=== PATIENT | male | born 1945 | race African-American/Black ===

== ENCOUNTER 2016-09-20 10:45 | Emergency (ER) | payer BC ==
--- NOTE | 2016-09-20 12:06 | UC ---
Head Injury HPI - HPI Summary HPI Summary: The patient comes in today for: 1. "I fell on my way on to a friends house." Onset: 2 hours ago. Palliative/provocative: Nothing makes his symptoms better or worse. Quality: Ache. Region: Right wrist. Severity: 10 though he appears more like 12/10 Time: Constant. Associated symptoms: Event: He states that he does not know why he fell. He state that when he was trying to step on the curb, he fell backwards into the street. He did not hit his head at that time. A lady helped him get up. While standing waiting for the helpful lady to turn her car around and he fell again into the street. He hit the back of his head at that time. He denies any loss of consciousness. He states that he fell on his outstretched right hand. It hurts now. He states that he is dizzy ("off balance"). He has no numbness or weakness. He does not know for sure if he had an asymmetrical smile, but he denies any slurred speech. He denies any LOC. No headache. HE denies any neck pain. Previous disease: He denies any previous neurologic symptoms. Social history:He lives alone in his own apartment. Previous event: Previous fall 2-3 on the ice. However, he states that this was not from any sense of imbalance--just that he slipped on ice. He states that he did not hit his head at that time. He had a "chipped bone" in his left ankle for which he was previously treated. He states that his imbalance which brings him in is a new onset problem. * - History Of Current Complaint Chief Complaint: UCGeneralIllness Stated Complaint: HEAD INJURY Time Seen by Provider: 09/20/16 11:32 Hx Obtained From: Patient - Allergies/Home Medications Allergies/Adverse Reactions: Allergies Allergy/AdvReac Type Severity Reaction Status Date / Time Ibuprofen Allergy Severe Shortness Verified 09/20/16 11:30 of Breath Penicillins [PCN] Allergy Intermediate "almost Verified 09/20/16 11:30 blacked out" PMH/Surg Hx/FS Hx/Imm Hx Previously Healthy: No - He does not know what medications he takes or for what reason for sure. Endocrine History Of: Denies: Diabetes, Thyroid Disease, Hyperthyroidism, Hypothyroidism, Dyslipidemia Cardiovascular History Of: Reports: Hypertension Denies: Cardiac Disorders, Pacemaker/ICD, Myocardial Infarction, Congestive Heart Failure, Atrial Fibrillation, Deep Vein Thrombosis, Bleeding Disorders Respiratory History Of: Denies: COPD, Asthma, Bronchitis, Pneumonia, Pulmonary Embolism GI/ History Of: Reports: Kidney Stones - MANY YEARS AGO, Renal Disease - ACUTE RENAL FAILURE R/T DEHYDRATION 12/31/14 Denies: Gastroesophageal Reflux, Ulcer, Gastrointestinal Bleed, Gall Bladder Disease, Diverticulitis, Urosepsis Neurological History Of: Denies: TIA, CVA, Dementia, Seizures, Migraine Psychological History Of: Denies: Anxiety, Depression, Bipolar Disorder, Schizophrenia, Post Traumatic Stress Disorder Cancer History Of: Denies: Lung Cancer, Colorectal Cancer, Breast Cancer, Prostate Cancer, Cervical Cancer Other History Of: Negative For: HIV, Hepatitis B, Hepatitis C, Anticoagulant Therapy - Surgical History Surgical History: Yes Surgery Procedure, Year, and Place: [facility], NASAL SURGERY, 1980S, right foot surgery - Family History Known Family History: Positive: Cardiac Disease, Diabetes - Social History Occupation: Employed Part-time Alcohol Use: None Alcohol Amount: has not had a drink in past 5-6 weeks Substance Use Type: Marijuana Substance Use Comment - Amount & Last Used: occ. usage Smoking Status (MU): Never Smoked Tobacco - Immunization History Most Recent Influenza Vaccination: NEVER Most Recent Tetanus Shot: UNKNOWN Most Recent Pneumonia Vaccination: NEVER Review of Systems Constitutional: Negative Skin: Negative Eyes: Negative ENT: Negative Respiratory: Negative Cardiovascular: Negative Gastrointestinal: Negative Genitourinary: Negative All Other Systems Reviewed And Are Negative: Yes Physical Exam Triage Information Reviewed: Yes Appearance: Well-Appearing, No Pain Distress, Well-Nourished Vital Signs: Initial Vital Signs Temp 97.7 F 09/20/16 11:22 Pulse 69 09/20/16 11:22 Resp 20 09/20/16 11:22 BP 195/114 09/20/16 11:22 Pulse Ox 100 09/20/16 11:22 Prior to leaving for the hospital the BP was 182/104. Vital Signs Reviewed: Yes Eyes: Positive: Conjunctiva Clear. Negative: Discharge ENT: Positive: Hearing grossly normal - He had hearing aids in both ears.. Negative: Pharyngeal erythema, Nasal congestion, Nasal drainage, Tonsillar swelling, Tonsillar exudate Dental: Positive: Other: - Mucous membranes were pink and moist. Neck: Positive: Supple, Nontender, No Lymphadenopathy. Negative: Nuchal Rigidity Respiratory: Positive: Lungs clear, No respiratory distress, No accessory muscle use. Negative: Crackles, Wheezing Cardiovascular: Positive: RRR, No Murmur Abdomen Description: Positive: Nontender, No Organomegaly, Soft. Negative: Distended, Guarding Musculoskeletal: Positive: Strength Intact, ROM Intact, Edema @ - Bilateral peripheral edema. Neurological: Positive: Alert, Muscle Tone Normal, Other: - Neurologic exam: Inspection: no fasciculations. Cranial nerves (II-XII): intact except for poor hearing in the left ear. Muscular tone: Reflexes: Biceps: 1+/2 x 2 Triceps: 1+/2 x 2 Brachioradialis: 1+/2 x 2 Patellar: 1+/2 x 2 Achilles : 0+/2 x 2 Coordination: Upper extremity: Alternating patting of thighs, alternating fingertips to thumb, index finger tip to nose--all normal. Lower extremity: Heel along wall--normal. Strength: Upper extremity: appropriate for age and symmetrical Lower extremity: appropriate for age and symmetrical Gait: Regular: Normal. Heel to toe: He is not able to complete. Rhomberg: Normal. Sensation: No complaint of numbness. Psychological: Positive: Age Appropriate Behavior, Consolable Skin: Negative: rashes, breakdown Diagnostics - Laboratory Diagnostic Studies Completed/Ordered: Random blood sugar: 87. EKG: Rate: 59. Rhythm: Sinus bradycardia. Ectopy: None. Acute changes: None. - Radiology No standard instances Xray Interpretation: Positive (See Comments) Radiology Interpretation Completed By: Radiologist - IMPRESSION: CT head: 1. NO EVIDENCE FOR ACUTE INTRACRANIAL ABNORMALITY. 2. FINDINGS SUGGESTIVE OF MILD CHRONIC SMALL VESSEL ISCHEMIC CHANGES. Head Injury Course/Dx - Course Course Of Treatment: Patient was told that with the findings of chronic ischemic changes seen on his CT scan and with the new onset of imbalance, he may be having a new small ministroke and for this reason, he may do well to be considered for a more thorough evaluation and possible admission. He agreed to go to the ER. - Differential Dx/Diagnosis Provider Diagnoses: New onset imbalance, with history of chronic ischemic changes seen on CT scan - Physician Notification/Consults Discussed Patient Care With: Dr. Sanderson. Time Discussed With Above Provider: 14:08 Discharge - Discharge Plan Condition: Stable Disposition: AGAINST MEDICAL ADVICE Additional Instructions: Please go directly to the ER (by private car by his request).
--- NOTE | 2016-09-20 12:55 | RAD ---
INDICATION: Head injury, new ambulation deficit. COMPARISON: Comparison is made with a prior CT of the brain from March 11, 2015 and a prior MRI of the brain from April 06, 2015. TECHNIQUE: Contiguous axial sections of the brain were obtained from the skull base to the vertex without contrast. FINDINGS: The ventricles, cisterns and sulci are enlarged consistent with age-related atrophy. There are small areas of decreased density in the subcortical and periventricular white matter suggestive of mild chronic small vessel ischemic changes. No other focal abnormality or mass effect is seen. There is no evidence for hemorrhage. No significant focal osseous abnormality is seen. The visualized portion of the paranasal sinuses and mastoid air cells appear clear. IMPRESSION: 1. NO EVIDENCE FOR ACUTE INTRACRANIAL ABNORMALITY. 2. FINDINGS SUGGESTIVE OF MILD CHRONIC SMALL VESSEL ISCHEMIC CHANGES.
--- NOTE | 2016-09-20 13:07 | RAD ---
INDICATION: Right wrist injury. TECHNIQUE: 4 views of the right wrist were obtained. FINDINGS: The bones are osteopenic and in normal alignment. There is posterior soft tissue swelling. No fracture is seen. There is a small calcification adjacent to the distal scaphoid bone. Joint spaces appear maintained. IMPRESSION: NO EVIDENCE FOR FRACTURE, IF THE PATIENT'S SYMPTOMS PERSIST RECOMMEND FOLLOW-UP IMAGING.
[2016-09-20 14:24] VITALS: BP 210/97
== END 2016-09-20 14:20 | disposition left against medical advice (07) ==
LOC: UCEAST 10:45
DX: R26.89 Other abnormalities of gait and mobility (principal); R42 Dizziness and giddiness; I67.82 Cerebral ischemia; I10 Essential (primary) hypertension; Z88.4 Allergy status to anesthetic agent; Z88.0 Allergy status to penicillin; F12.90 Cannabis use, unspecified, uncomplicated
CPT/HCPCS: 70450; 93005; 99212; G0463

== ENCOUNTER 2016-09-20 14:46 | Observation (INO) | payer BC, MEDICARE ==
[2016-09-20 15:30] LABS: Hematocrit 34 % (42-52); Hemoglobin 10.8 g/dl (14.0-18.0); Mean Corpuscular HGB Conc 32 g/dl (31-36); Mean Corpuscular Hemoglobin 31 pg (27-31); Mean Corpuscular Volume 97 fL (80-94); Mean Platelet Volume 8 um3 (7.4-10.4); Red Blood Count 3.48 10^6/ul (4.0-5.4); Red Cell Distribution Width 16 % (10.5-15); White Blood Count 10.1 10^3/ul (3.5-10.8)
--- NOTE | 2016-09-20 15:41 | RAD ---
Indication: Hypertension. Single frontal view of the chest performed at 1525 hours was reviewed. Comparison is made with previous exam dated December 31, 2014. Cardiomegaly is noted. Tortuous descending aorta is noted. Lungs are clear. IMPRESSION: CARDIOMEGALY WITH TORTUOUS DESCENDING AORTA.
[2016-09-20 15:49] LABS: Albumin 3.7 g/dL (3.2-5.2); Calcium 9.1 mg/dL (8.6-10.3); EGFR African American 71.9 (>60); EGFR Non-African American 55.9 (>60); Globulin 2.7 g/dL (2-4); Potassium 3.8 mmol/L (3.5-5.0); Total Bilirubin 0.9 mg/dL (0.2-1.0); Total Protein 6.4 g/dL (6.4-8.9); Troponin I 0.01 ng/mL (<0.04)
[2016-09-20] MEDS ORDERED: amLODIPine TAB* 5 MG PO ONE (16:10)
[2016-09-20] MEDS ORDERED: hydrALAZINE IV* 20 MG/ML VIAL IV SLOW PU ONE (16:11)
[2016-09-20 16:34] LABS: T4 6.9 g/dL (6.09-12.23)
[2016-09-20 16:35] LABS: TSH (Thyroid Stimulating Horm) 0.91 mcIU/mL (0.34-5.60)
[2016-09-20] MEDS ORDERED: Furosemide IV* 10 MG/ML VIAL (40 MG) IV SLOW PU ONE (17:48)
[2016-09-20] MEDS: hydrALAZINE IV* 20 MG/ML VIAL IV SLOW PU PRN (17:50)
[2016-09-20] MEDS ORDERED: Ondansetron INJ* 2 MG/ML VIAL IV PRN (19:03)
--- NOTE | 2016-09-20 19:06 | PN ---
Hospitalist Progress Note HOSPITALIST ADDENDUM Called by RN because patient arrived to floor c/o severe MANRIQUEZ / and nausea. BP on arrival was 153/89. I called hospitalist certified nurse practitioner (Dr. Calvo) and he kindly agreed to see the patient now.
--- NOTE | 2016-09-20 19:16 | PN ---
Hospitalist Progress Note CTSP for headache/N/V On arrival patient sitting up in bed appears comfortable. Had some nausea and minimal emesis of clear liquid, nausea has since resolved. Denies chest pain or SOB. Reports MANRIQUEZ in the frontal area that has been present since he feel and hit his head. On exam, BPs have lowered after medications, CN II-XII grossly intact, strength 5/5 throughout extremities, sensation symmetric B/L, no deficits noted. Will write patient for analgesic, can give prn zofran for nausea. If MANRIQUEZ persists despite medication or worsens or patient has any other concerning symptoms can consider repeat head CT (had negative CT at noon today) but I think intracranial hemorrhage is unlikely.
[2016-09-20] MEDS: Acetaminophen TAB* 325 MG PO PRN (19:42)
[2016-09-20] MEDS: Carvedilol TAB* 25 MG PO SCH ×2 (19:42→21:43)
[2016-09-20] MEDS: Heparin VIAL(*) 5000 UNITS/ML VIAL (FIVE THOUSAND) SUBCUT SCH (21:44)
--- NOTE | 2016-09-20 22:37 | ED ---
Renan Bonner Adam, scribed for Pierre Sanderson MD on 09/20/16 at 1556 . Adult Trauma - HPI Summary HPI Summary: Fell at 10:30 this morning after feeling dizzy. As he was walking outside he began to feel off-balance and then he fell backwards and struck his head on the curb. He c/o constant MANRIQUEZ since hitting his head. He denies any lightheadedness, spinning, slurred speech, difficulty swallowing, unilateral numbness/weakness/ tingling, or pain between the shoulder blades. He also denies any N/V/D, cough, abdominal pain, or recent PNA. PMHx of HTN but he did not take his BP medicine today. Daily alcohol use, no tobacco use. No FMHx of CVA or cardiac disease. Pt was seen at [facility] after the fall and had CT WNL. He was sent to the ED with HTN. - History of Current Complaint Chief Complaint: EDDizziness Stated Complaint: FALL/HEAD INJURY Time Seen by Provider: 09/20/16 15:12 Hx Obtained From: Patient Mechanism of Injury: Fall Ambulatory at the Scene: Yes Loss of Consciousness: no loss of consciousness Onset/Duration: Started Hours Ago, Traumatic, Still Present Onset of Pain: Immediate Onset Severity: Moderate Current Severity: Moderate Location: Head Aggravating Factor(s): Nothing Alleviating Factor(s): Nothing Associated Signs & Symptoms: Positive: Other: - Dizziness prior to fall - Allergy/Home Medications Allergies/Adverse Reactions: Allergies Allergy/AdvReac Type Severity Reaction Status Date / Time Ibuprofen Allergy Severe Shortness Verified 09/20/16 11:30 of Breath Penicillins [PCN] Allergy Intermediate "almost Verified 09/20/16 11:30 blacked out" Home Medications: Home Medications Multivitamins/Minerals TAB* [Theragran/minerals TAB*] 1 tab PO DAILY 09/20/16 [ History Confirmed 09/20/16] amLODIPine TAB* [Norvasc TAB*] 10 mg PO DAILY 09/20/16 [History Confirmed ] PMH/Surg Hx/FS Hx/Imm Hx Endocrine/Hematology History: Denies: Hx Anticoagulant Therapy, Hx Diabetes, Hx Systemic Lupus Erythematosus, Hx Sickle Cell Disease, Hx Thyroid Disease Cardiovascular History: Reports: Hx Hypercholesterolemia, Hx Hypertension Denies: Hx Congestive Heart Failure, Hx Deep Vein Thrombosis, Hx Myocardial Infarction, Hx Pacemaker/ICD, Other Cardiovascular Problems/Disorders Respiratory History: Denies: Hx Asthma, Hx Chronic Obstructive Pulmonary Disease (COPD), Hx Lung Cancer, Hx Pneumonia, Hx Pulmonary Embolism, Other Respiratory Problems/ Disorders GI History: Denies: Hx Gall Bladder Disease, Hx Gastrointestinal Bleed, Hx Ulcer, Hx Urosepsis, Other GI Disorders History: Reports: Hx Kidney Stones - MANY YEARS AGO, Hx Renal Disease - ACUTE RENAL FAILURE R/T DEHYDRATION 12/31/14, Other Problems/Disorders Denies: Hx Dialysis Musculoskeletal History: Reports: Hx Arthritis Denies: Hx Rheumatoid Arthritis, Other Musculoskeletal History Sensory History: Reports: Hx Contacts or Glasses, Hx Hearing Aid Opthamlomology History: Reports: Hx Contacts or Glasses Neurological History: Reports: Other Neuro Impairments/Disorders - optic nerve atrophy Denies: Hx Dementia, Hx Migraine, Hx Seizures, Hx Transient Ischemic Attacks (TIA) Psychiatric History: Denies: Hx Anxiety, Hx Depression, Hx Panic Disorder, Hx Schizophrenia, Hx Bipolar Disorder - Cancer History Hx Chemotherapy: No - Surgical History Surgery Procedure, Year, and Place: [facility], NASAL SURGERY, 1980S, right foot surgery Hx Anesthesia Reactions: No Infectious Disease History: No Infectious Disease History: 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 usage Hx Tobacco Use: No Smoking Status (MU): Never Smoked Tobacco Review of Systems Positive: Other - HTN Positive: Edema - Bilateral ankles Neurological: Other - Dizziness Positive: Headache All Other Systems Reviewed And Are Negative: Yes Physical Exam - Summary Physical Exam Summary: General: Comfortable, pleasant, alert, no distress. HEENT: Moist mucosa, ETHEL, no nystagmus, EOMI. No hematoma, negative Nava's, negative Raccoon. Neck: Soft, supple, no adenopathy, no edema. C-spine nontender, C-spine full ROM. Heart: No murmurs, rubs, or gallops Lungs: Clear to auscultation. Abdominal: Soft, flat, nontender. Extremities: No pitting edema, no calf tenderness, calves soft. Neuro: Alert and oriented x 3, CN 3-12 intact. Negative pronator drift in all four extremities. Speech is not slurred. No facial droop. Psych: Logical, coherent Triage Information Reviewed: Yes Vital Signs On Initial Exam: Initial Vitals Temp Pulse Resp BP Pulse Ox 98.9 F 70 18 204/112 100 09/20/16 15:05 09/20/16 15:05 09/20/16 15:05 09/20/16 15:05 09/20/16 15:05 Vital Signs Reviewed: Yes Diagnostics - Vital Signs Vital Signs Temp Pulse Resp BP Pulse Ox 09/20/16 15:05 98.9 F 70 18 204/112 100 - Laboratory Lab Results: Lab Results 09/20/16 09/20/16 09/20/16 Range/Units 15:15 15:15 15:15 WBC 10.1 (3.5-10.8) 10^3/ul RBC 3.48 L (4.0-5.4) 10^6/ul Hgb 10.8 L (14.0-18.0) g/dl Hct 34 L (42-52) % MCV 97 H (80-94) fL MCH 31 (27-31) pg MCHC 32 (31-36) g/dl RDW 16 H (10.5-15) % Plt Count 170 (150-450) 10^3/ul MPV 8 (7.4-10.4) um3 Neut % (Auto) 78.1 (38-83) % Lymph % (Auto) 9.4 L (25-47) % [place] % (Auto) 11.4 H (1-9) % Eos % (Auto) 0.2 (0-6) % Baso % (Auto) 0.9 (0-2) % Absolute Neuts (auto) 7.9 H (1.5-7.7) 10^3/ul Absolute Lymphs (auto) 1.0 (1.0-4.8) 10^3/ul Absolute Monos (auto) 1.2 H (0-0.8) 10^3/ul Absolute Eos (auto) 0 (0-0.6) 10^3/ul Absolute Basos (auto) 0.1 (0-0.2) 10^3/ul Absolute Nucleated RBC 0 10^3/ul Nucleated RBC % 0 Sodium 139 (133-145) mmol/L Potassium 3.8 (3.5-5.0) mmol/L Chloride 110 (101-111) mmol/L Carbon Dioxide 22 (22-32) mmol/L Anion Gap 7 (2-11) mmol/L BUN 14 (6-24) mg/dL Creatinine 1.27 H (0.67-1.17) mg/dL Est GFR ( Amer) 71.9 (>60) Est GFR (Non-Af Amer) 55.9 (>60) BUN/Creatinine Ratio 11.0 (8-20) Glucose 89 (70-100) mg/dL Lactic Acid 1.0 (0.5-2.0) mmol/L Calcium 9.1 (8.6-10.3) mg/dL Total Bilirubin 0.90 (0.2-1.0) mg/dL AST 15 (13-39) U/L ALT 15 (7-52) U/L Alkaline Phosphatase 93 (34-104) U/L Troponin I 0.01 (<0.04) ng/mL Total Protein 6.4 (6.4-8.9) g/dL Albumin 3.7 (3.2-5.2) g/dL Globulin 2.7 (2-4) g/dL Albumin/Globulin Ratio 1.4 (1-3) TSH Pending Thyroxine (T4) Pending Result Diagrams: 09/20/16 15:15 09/20/16 15:15 Lab Statement: Any lab studies that have been ordered have been reviewed, and results considered in the medical decision making process. - Radiology CXR Radiology Interpretation Completed By: Radiologist - IMPRESSION: CARDIOMEGALY WITH TORTUOUS DESCENDING AORTA. - EKG 15:03 Cardiac Rate: NL - 65 BPM EKG Interpretation: PAC's. Otherwise no ST changes. - Additional Comments Diagnostic Additional Comments: Troponin I - 0.01 Adult Trauma Course/Dx - Course Assessment/Plan: He presents with sudden onset imbalance resulting in a fall. Here in the ED he has severely elevated BP, newly elevated BNP, and we are concerned that this may represent a CVA and hypertensive emergency. Currently his NIH stroke scale is quite low and his BP, as high as it is, will not allow us to administer TPA. I don't believe he is a candidate under these circumstances. I discussed with Dr. Moya who accepts patient. We will aggressively manage his hypertensive emergency. - Diagnoses Provider Diagnoses: HTN (hypertension), malignant Discharge - Discharge Plan Condition: Guarded Disposition: ADMITTED TO [facility] documentation as recorded by the scribeRenan Adam accurately reflects the service I personally performed and the decisions made by me, Pierre Sanderson MD.
[2016-09-21] MEDS: hydrALAZINE IV* 20 MG/ML VIAL IV SLOW PU PRN (01:08)
--- NOTE | 2016-09-21 01:30 | HP ---
HISTORY AND PHYSICAL: DATE OF ADMISSION: 09/20/16 TIME OF EVALUATION: 5:05 p.m. PRIMARY CARE PROVIDER: Dr. Steele. CHIEF COMPLAINT: Dizziness. HISTORY OF PRESENT ILLNESS: Mr. Bajwa is a 70-year-old male with a past medical history of hypertension, overactive bladder, CKD stage 3, who presented to the emergency room, referred from [facility] due to elevated blood pressure. The patient states that he was in his usual state of health this morning and he went to a friend's home. On the way, he felt a little dizzy and fell. A person passing by helped him up, but he states that he continued to go and fell again. He was able to get to his friend's home and was then taken to [facility] and his blood pressure was 195/114 on arrival. At [facility] on triage, he was described by the nurse as having an unsteady gait, right hand grab was weaker, tongue deviated slightly to the right and smile was weakly equal and bilateral. When examined by the physician at [facility], he did not have any specific neurological deficit documented on the note. His strength was symmetrical. His gait was described as normal. Romberg was also normal. He had a CT of the brain without contrast that showed no evidence for acute intracranial abnormality, only finding suggestive of mild chronic small- vessel ischemic changes. He was referred to the emergency room for further evaluation. On ER arrival, his blood pressure was 204/112 and the hospitalist service was consulted for admission. At the time of my evaluation, the patient denies chest pain, shortness of breath , palpitations, back or neck pain, headache, nausea, vomiting, and states that the dizziness is much improved at this time. He states that he takes his blood pressure medications with food but as he did not have breakfast this morning, he did not take his medications before going to his friend's home, so he missed amlodipine and carvedilol this morning. He states that this is unusual for him but he does not measure his blood pressure regularly, so is not really aware of his usual numbers. Although the patient does not complain of it, on physical examination, I found that he has bilateral lower extremity pitting edema that he states has started for the past 2 days, but due to skin changes, appears to be have been going on for a longer period. PAST MEDICAL HISTORY: 1. Hypertension. 2. Overactive bladder. 3. CKD, stage 3. ALLERGIES: The patient had shortness of breath with IBUPROFEN and he almost passed out with PENICILLIN. FAMILY HISTORY: The patient's mother had breast cancer. SOCIAL HISTORY: No history of tobacco, alcohol abuse. Surrogate decision maker is his brother, Jackson Bajwa, phone number is [phone]. REVIEW OF SYSTEMS: A 14-point review of systems is performed and all the pertinent negative and positive findings are in the HPI. PHYSICAL EXAMINATION GENERAL: The patient is a pleasant elderly male, sitting up in the ER stretcher , in no acute distress. VITAL SIGNS: Temperature is 98.9, heart rate is 75, respiratory rate is 18, oxygen saturation is 100% on room air, blood pressure is 176/98. HEENT: Pupils are equal and reactive to light. Extraocular movements are intact. Face is symmetric and cranial nerves II through XII are grossly intact. NECK: No JVD. Supple. CHEST: Breath sounds present bilaterally with no added sounds. CVS: Normal S1, S2. Regular rate and rhythm. ABDOMEN: Soft, nontender, nondistended. Bowel sounds present. EXTREMITIES: There is moderate bilateral lower extremity pitting edema. Pulses are equal bilaterally on upper and lower extremities. No calf tenderness. NEUROLOGIC: He is alert, awake, oriented x3. Power is equal and appropriate for age in all 4 extremities. Face is symmetric. There is no nystagmus. No speech change. The patient is able to stand up with no assistance and does not appear to have balance issues at this time but he does describe feeling better now. DIAGNOSTIC STUDIES/LAB DATA: The patient had a CBC with a WBC of 10, hemoglobin of 10.8, hematocrit of 34, platelets of 170 with 78% neutrophils. Chemistry showed a sodium of 139, potassium of 3.8, chloride of 110, bicarbonate of 22, BUN of 14, creatinine of 1.27, glucose of 89. Lactic acid 1.0. LFTs are normal. Troponin 0.01. BNP is elevated at 466. TSH is 0.91. Right wrist x-ray done at [facility] showed no evidence for fracture. CT of the brain also done at [facility] showed no acute intracranial abnormality, findings suggestive of mild chronic small-vessel ischemic changes. Chest x-ray done in the emergency room showed cardiomegaly with tortuous descending aorta. EKG done on September 20 at 1503 showed sinus rhythm at 65 beats per minute with APCs, no ST-T changes. This is unchanged when compared to his prior EKG done on the same date and from his prior EKG done in 2014. ASSESSMENT AND PLAN: Mr. Bajwa is a 70-year-old male with a past medical history of hypertension, overactive bladder, chronic kidney disease stage 3 that presents to the emergency room with complaints of dizziness, found to have a blood pressure of 204/112 compatible with hypertensive urgency. 1. Hypertensive urgency. I suspect the patient's blood pressure is now well controlled at baseline and today, he developed the hypertensive urgency because he missed his morning doses of amlodipine and carvedilol. He received amlodipine and hydralazine in the emergency room and the blood pressure at the time of my evaluation is in the 170s/100s and he describes symptomatic improvement. He will be admitted as observation to the telemetry floor. We are going resume his amlodipine, carvedilol, add furosemide and hydralazine IV to lower his blood pressure slowly over his hospital stay. At this time, he denies chest or back pain but his chest x-ray does show a tortuous aorta and with his history of uncontrolled hypertension, he is at risk for aortic dissection, so would have a low threshold to scan him if he develops those symptoms. Another concern is that he is at risk for stroke. Although the triage at [facility] described some right hand weakness, I believe this is likely secondary to his fall and trauma and not necessarily a neurological finding as his neurological exam done by the physician at [facility] was fairly normal and that is also my finding at this time. His dizziness is probably associated with the hypertensive urgency but if his blood pressure is better controlled and his symptoms return, would have a low threshold to perform an MRI of the brain to rule out posterior circulation CVA. As his neurological exam is normal at this time, I believe we can just monitor him closely on telemetry with neurological checks. 2. Lower extremity edema. I suspect the patient may have undiagnosed congestive heart failure, likely associated with his hypertension. Although he describes this lower extremity edema for the past 2 days, considering his skin changes, I believe this has been going on for a longer period. I am going to check an echocardiogram to assess his left ventricular function. His BNP is elevated at 466 and I am going to add IV furosemide. 3. Code status is full. 4. DVT prophylaxis. The patient had a score of 2 on the DVT Prophylaxis Risk Assessment Guide and he will be started on subcutaneous heparin. TIME SPENT: Approximately 65 minutes was spent with the patient interview, medical record review, physical examination to complete the admission, more than half of this time was spent [id number] with the patient in coordination of care. CC: Dr. Steele * [id number]/[id number] #: [id number] TAM
[2016-09-21] MEDS: Heparin VIAL(*) 5000 UNITS/ML VIAL (FIVE THOUSAND) SUBCUT SCH (05:49)
[2016-09-21] MEDS: Acetaminophen TAB* 325 MG PO PRN (05:52)
[2016-09-21 07:31] VITALS: BP 150/77
[2016-09-21] MEDS: Carvedilol TAB* 25 MG PO SCH (07:45)
--- NOTE | 2016-09-21 08:54 | DCNOTE ---
Subjective Date of Service: 09/21/16 Interval History: No new c/o. Pt states Dr. Steele stopped his amlodipine several weeks ago. No pain L ankle. He denies any dizziness. No new c/o, anxious to go home. Objective Active Medications: Acetaminophen (Tylenol Tab*) 650 mg PO Q6H PRN PRN Reason: Pain/fever Last Admin: 09/21/16 05:52 Dose: 650 mg Amlodipine Besylate (Norvasc Tab*) 5 mg PO DAILY [facility] Aspirin (Aspirin Low Dose Tab*) 81 mg PO DAILY [facility] Last Admin: 09/21/16 07:46 Dose: 81 mg Carvedilol (Coreg Tab*) 25 mg PO BID [facility] Last Admin: 09/21/16 07:45 Dose: 25 mg Heparin Sodium (Porcine) (Heparin Vial(*)) 5,000 units SUBCUT Q8HR [facility] Last Admin: 09/21/16 05:49 Dose: 5,000 units Hydralazine HCl (Apresoline Iv*) 10 mg IV SLOW PU Q6H PRN PRN Reason: BP>180/100 Last Admin: 09/21/16 01:08 Dose: 10 mg Multivitamins/Minerals (Theragran/Minerals Tab*) 1 tab PO DAILY [facility] Last Admin: 09/21/16 07:45 Dose: 1 tab Ondansetron HCl (Zofran Inj*) 4 mg IV Q6H PRN PRN Reason: NAUSEA Last Admin: 09/20/16 19:41 Dose: 4 mg Vital Signs 09/20/16 09/20/16 09/20/16 17:50 18:00 18:15 Temperature Pulse Rate 77 71 75 Respiratory 21 24 22 Rate Blood Pressure 174/105 176/98 173/98 (mmHg) O2 Sat by Pulse 100 98 100 Oximetry 09/20/16 09/20/16 09/20/16 18:54 19:02 20:00 Temperature 99.4 F Pulse Rate 90 87 Respiratory 16 18 25 Rate Blood Pressure 162/90 180/108 (mmHg) O2 Sat by Pulse 100 99 Oximetry 09/20/16 09/20/16 09/20/16 21:00 22:00 23:00 Temperature Pulse Rate 82 79 80 Respiratory 21 24 22 Rate Blood Pressure 131/85 (mmHg) O2 Sat by Pulse 98 93 97 Oximetry 01/09/21/16 09/21/16 23:31 00:00 00:03 Temperature 99.0 F Pulse Rate 75 75 Respiratory 14 14 Rate Blood Pressure 120/71 (mmHg) O2 Sat by Pulse 97 97 Oximetry 09/21/16 09/21/16 09/21/16 01:00 01:15 03:47 Temperature 98.9 F Pulse Rate 75 83 Respiratory 18 18 16 Rate Blood Pressure 116/72 (mmHg) O2 Sat by Pulse 88 99 Oximetry 09/21/16 07:20 Temperature 98.7 F Pulse Rate 77 Respiratory 16 Rate Blood Pressure 150/77 (mmHg) O2 Sat by Pulse 100 Oximetry Oxygen Devices in Use Now: None Appearance: Alert, sitting up in bed. In good spirits. Looks comfortable. Eyes: No Scleral Icterus Ears/Nose/Mouth/Throat: Clear Oropharnyx, Mucous Membranes Moist Neck: NL Appearance and Movements; NL JVP, No Thyroid Enlargement, Masses Respiratory: Symmetrical Chest Expansion and Respiratory Effort, Clear to Auscultation, Clear to Percussion Cardiovascular: NL Sounds; No Murmurs; No JVD, RRR, No Edema, - Extremities: No Edema, No Clubbing, Cyanosis, - - Both lower legs thick but no pitting. Skin: No Rash or Ulcers, No Nodules or Sclerosis, - Neurological: Alert and Oriented x 3, NL Sensation Result Diagrams: 09/20/16 15:15 09/20/16 15:15 Additional Lab and Data: Lab Results 09/20/16 09/20/16 09/20/16 Range/Units 15:15 15:15 15:15 WBC 10.1 (3.5-10.8) 10^3/ul RBC 3.48 L (4.0-5.4) 10^6/ul Hgb 10.8 L (14.0-18.0) g/dl Hct 34 L (42-52) % MCV 97 H (80-94) fL MCH 31 (27-31) pg MCHC 32 (31-36) g/dl RDW 16 H (10.5-15) % Plt Count 170 (150-450) 10^3/ul MPV 8 (7.4-10.4) um3 Neut % (Auto) 78.1 (38-83) % Lymph % (Auto) 9.4 L (25-47) % Newberry % (Auto) 11.4 H (1-9) % Eos % (Auto) 0.2 (0-6) % Baso % (Auto) 0.9 (0-2) % Absolute Neuts (auto) 7.9 H (1.5-7.7) 10^3/ul Absolute Lymphs (auto) 1.0 (1.0-4.8) 10^3/ul Absolute Monos (auto) 1.2 H (0-0.8) 10^3/ul Absolute Eos (auto) 0 (0-0.6) 10^3/ul Absolute Basos (auto) 0.1 (0-0.2) 10^3/ul Absolute Nucleated RBC 0 10^3/ul Nucleated RBC % 0 Sodium 139 (133-145) mmol/L Potassium 3.8 (3.5-5.0) mmol/L Chloride 110 (101-111) mmol/L Carbon Dioxide 22 (22-32) mmol/L Anion Gap 7 (2-11) mmol/L BUN 14 (6-24) mg/dL Creatinine 1.27 H (0.67-1.17) mg/dL Est GFR ( Amer) 71.9 (>60) Est GFR (Non-Af Amer) 55.9 (>60) BUN/Creatinine Ratio 11.0 (8-20) Glucose 89 (70-100) mg/dL Lactic Acid 1.0 (0.5-2.0) mmol/L Calcium 9.1 (8.6-10.3) mg/dL Total Bilirubin 0.90 (0.2-1.0) mg/dL AST 15 (13-39) U/L ALT 15 (7-52) U/L Alkaline Phosphatase 93 (34-104) U/L Troponin I 0.01 (<0.04) ng/mL Total Protein 6.4 (6.4-8.9) g/dL Albumin 3.7 (3.2-5.2) g/dL Globulin 2.7 (2-4) g/dL Albumin/Globulin Ratio 1.4 (1-3) TSH Pending Thyroxine (T4) Pending Assess/Plan/Problems-Billing Assessment: - Patient Problems (1) HTN (hypertension) Current Visit: Yes Status: Acute Code(s): I10 - ESSENTIAL (PRIMARY) HYPERTENSION SNOMED Code(s): 43255844 Comment: Patient missed his AM carvedilol 09/20. I don't think his BP was checked since his amlodipine was stopped. He recieved 10 mg today. Rx 5 mg daily. Fup within [address] Steele's office. (2) Pre-syncope Current Visit: No Status: Acute Priority: High Onset Date: 12/31/14 Comment: After patient fell 09/20 he was very weak and needed help to get into his friend's car to go to . Status and Disposition: Discharge now. Fup Dr. Steele within 1 week.
[2016-09-21] MEDS ORDERED: Multivitamins/Minerals TAB PO SCH (09:00)
[2016-09-21] MEDS ORDERED: Aspirin Low Dose CHEW TAB* 81 MG PO SCH (09:00)
[2016-09-21] MEDS ORDERED: amLODIPine TAB* 5 MG PO SCH ×2 (09:00)
--- NOTE | 2016-09-21 12:26 | DS ---
CC: Dr. Steele DISCHARGE SUMMARY: DATE OF ADMISSION: DATE OF DISCHARGE: 09/21/16 HOSPITAL COURSE: This is a 70-year-old man who was with a friend, he fell down. He denied being dizzy; however, he said he was too weak to get up. However, his friend did help him get up and with help, he got him to his friend' s car and went to urgent care. He denied losing consciousness. He denied previous episodes of syncope. He did have a fall in the ice a few weeks ago and he said he was told he had a bone chip on his left leg. The ankle x-ray actually was read as negative. He has no pain on this at this time. The patient told the providers and to me that he did not take his morning blood pressure medication the day of admission. He told me that Dr. Steele had stopped his amlodipine 10 mg daily several weeks ago and that the patient has not taken it since then. As far as I could tell, he has not had his blood pressure checked since the amlodipine was discontinued. On arrival in the emergency room, his blood pressure was 204/112; by 7 p.m. that day, it was 162/90; on the morning of discharge, it was 150/77. The patient felt well, and it was noted that he is able to walk around quite easily. I note that he had three troponins all of which were normal. His B- natriuretic peptide is elevated; the significance of this is not clear. The patient will have an echocardiogram before discharge. I am going to start him on amlodipine 5 mg daily. FINAL DIAGNOSES: 1. Hypertensive urgency. 2. History of hypertension. 3. Chronic kidney disease, creatinine is 1.27. DISCHARGE MEDICATIONS: 1. Amlodipine 5 mg daily. 2. Carvedilol 25 mg b.i.d. 3. Acetaminophen 650 mg every 6 hours p.r.n. 4. Aspirin 81 mg daily. DISCHARGE FOLLOWUP: The patient will be seen in Dr. Steele's office within 1 week of discharge. [id number] #: [id number] MTDVishal
--- NOTE | 2016-09-21 12:34 | ECHO ---
Patient: ALEJANDRO TOBIAS [facility] Rec#: [id number] : 1945 Date: 09/21/2016 Age: 70y Height: 182.88 cm / 72.0 in Weight: 76.2 kg / 167.9 lbs Sex: M BSA: 1.98 Room#: 433 Admit Date#: 09/20/2016 Type: Inpatient Referring: Vania Aguilar MD Reading: Yang Roger DO Rheostat Assembler: Rachna Castro RDCS CC: Jakub Steele MD Transthoracic Echocardiogram Indication: Edema BP: 116/72 HR: 79 Rhythm: NSR Findings History: HTN,CKD stage III,edema. Technical Comments: The study quality is good. Completed at 0950. Left Ventricle: The left ventricular chamber size is normal. Mild concentric left ventricular hypertrophy is observed.with more prominent thickening of the basal septum. Global left ventricular wall motion and contractility are within normal limits. There is normal left ventricular systolic function. The estimated ejection fraction is greater than 65%. Normal left atrial size makes clinically significant diastolic dysfunction unlikely. Left Atrium: The left atrial chamber size is normal. Right Ventricle: The right ventricular chamber size and systolic function are within normal limits. Right Atrium: The right atrial cavity size is normal. Aortic Valve: The aortic valve is trileaflet. There is a trace of aortic regurgitation. There is no evidence of aortic stenosis. Mitral Valve: There is trace to mild mitral regurgitation. There is no evidence of mitral stenosis. Tricuspid Valve: The tricuspid valve leaflets are normal. There is trace tricuspid regurgitation. Unable to estimate the right ventricular systolic pressure. There is no tricuspid stenosis. Pulmonic Valve: The pulmonic valve appears normal. There is no evidence of pulmonic regurgitation. There is no pulmonic stenosis. Pericardium: There is no significant pericardial effusion. Aorta: There is mild dilatation of the ascending aorta. There is no dilatation of the aortic arch. There is mild dilatation of the aortic root. Pulmonary Artery: The main pulmonary artery is not well visualized. Venous: The venous system is not well visualized. Conclusions The left ventricular chamber size is normal. Mild concentric left ventricular hypertrophy is observed with more prominent thickening of the basal septum. There is normal left ventricular systolic function with an estimated LV ejection fraction of 65-70% and no segmental wall motion abnormalities noted. Normal left atrial size The right ventricular chamber size and systolic function are within normal limits. No significant valvular abnormalities noted. Unable to estimate the right ventricular systolic pressure. There is mild dilatation of the ascending aorta. There is mild dilatation of the aortic root. No prior studies available for comparison at time of interpretation. Measurements Name Value Normal Range RVIDd (AP) 2D 3 cm (0.9 - 2.6) RVDdMajor (2D) 3 cm (2.2 - 4.4) RAd ISD 4CH 5.3 cm (3.4 - 4.9) RA (A4C)W 2.9 cm (2.9 - 4.6) IVSd (2D) 1.1 cm (0.6 - 1) LVPWd (2D) 1.2 cm (0.6 - 1) LVIDd (2D) 3.6 cm (3.6 - 5.4) LVIDs (2D) 1.8 cm - LV FS (2D) 50 % (25 - 45) Aortic Annulus 2.3 cm (1.4 - 2.6) Ao root diameter (2D) 4 cm (2.1 - 3.5) Ascending Ao 4 cm (2.1 - 3.4) Aortic arch 2.5 cm (1.8 - 3.4) Descending Ao 0.4 cm - LA dimension (AP) 2D 3.1 cm (2.3 - 3.8) LAd ISD 4CH 5.4 cm (2.9 - 5.3) LA ISD 4CH W 4.1 cm (2.5 - 4.5) Name Value Normal Range LA ESV SP 4CH (A/L) 52 ml - LA ESV SP 2CH (A/L) 94 ml - LA ESV BP (A/L) 77 ml - LA ESV BP (A/L) index 39.03 ml/m2 - LA ESV SP 4CH (MOD) 48 ml - LA ESV SP 2CH (MOD) 83 ml - Name Value Normal Range MV E-wave Vmax 0.7 m/sec - MV deceleration time 219 msec - MV A-wave Vmax 1 m/sec - MV E:A ratio 0.66 ratio - LV septal e' Vmax 0.06 m/sec - LV lateral e' Vmax 0.09 m/sec - LV E:e' septal ratio 11.67 ratio - LV E:e' lateral ratio 7.78 ratio - Name Value Normal Range AV Vmax 1.7 m/sec - AV VTI 37.6 cm - AV peak gradient 11.45 mmHg - AV mean gradient 5.25 mmHg - LVOT Vmax 1.4 m/sec - LVOT VTI 29.8 cm - LVOT peak gradient 7.92 mmHg - LVOT mean gradient 3.28 mmHg - AR PHT 236 msec - AR peak gradient 37 mmHg - Name Value Normal Range PV Vmax 1 m/sec - PV peak gradient 3.86 mmHg -
== END 2016-09-21 12:29 | disposition home or self-care (01) ==
LOC: ED 14:46 → MEDTELE 17:40
PROVIDERS: ADMIT Internal Medicine; ATTEND Internal Medicine
DX: I16.0 Hypertensive urgency (principal); I12.9 Hypertensive chronic kidney disease with stage 1 through stage 4 chronic kidney disease, or unspecified chronic kidney disease; N18.3 Chronic kidney disease, stage 3 (moderate); R60.9 Edema, unspecified; R42 Dizziness and giddiness; N32.81 Overactive bladder; Z79.899 Other long term (current) drug therapy; Z79.82 Long term (current) use of aspirin; Z88.0 Allergy status to penicillin; Z88.6 Allergy status to analgesic agent; I51.7 Cardiomegaly; I49.1 Atrial premature depolarization
CPT/HCPCS: 36415; 71010; 80053; 83605; 83880; 84436; 84443; 84484; 85025; 93005; 93306; 96372; 96374; 96375; 96376; 99285; A9270-GY; G0378; J0360; J1644; J1940; J2405

== ENCOUNTER 2018-01-11 08:38 | Emergency (ER) | payer BC, MEDICARE ==
[2018-01-11] MEDS ORDERED: NS 0.9% 1000 ML* 1,000 ML IV ONE (09:28)
[2018-01-11 09:57] LABS: ABS Basophils 0.1 10^3/ul (0-0.2); ABS Eosinophils 0 10^3/ul (0-0.6); ABS Lymphocytes 1.1 10^3/ul (1.0-4.8); ABS Monocytes 0.7 10^3/ul (0-0.8); ABS Neutrophils 4.5 10^3/ul (1.5-7.7); ABS Nucleated RBC 0 10^3/ul; Eosinophil % 0.2 % (0-6); Hematocrit 32 % (42-52); Hemoglobin 10.8 g/dl (14.0-18.0); Lymphocyte % 17.5 % (25-47); Mean Corpuscular HGB Conc 33 g/dl (31-36); Mean Corpuscular Hemoglobin 32 pg (27-31); Mean Corpuscular Volume 96 fL (80-94); Mean Platelet Volume 8.2 um3 (7.4-10.4); Nucleated Red Blood Cells % 0.6; Platelet Count 198 10^3/ul (150-450); Red Blood Count 3.36 10^6/ul (4.0-5.4); Red Cell Distribution Width 17 % (10.5-15); White Blood Count 6.4 10^3/ul (3.5-10.8)
[2018-01-11 09:59] LABS: INR 0.95 (0.77-1.02)
[2018-01-11 10:06] LABS: EGFR Non-African American 38.7 (>60)
--- NOTE | 2018-01-11 10:17 | RAD ---
Indication: Left facial droop. CT of the brain was performed without IV contrast. Ventricular structures are midline. No midline shift is noted. The extra-axial spaces are unremarkable. There is no evidence of intracranial mass or hemorrhage. No other high or low density lesions are identified. Mastoid air cells and paranasal sinuses are unremarkable. When compared to previous exam of September 20, 2016 no significant change is noted. IMPRESSION: No intracranial mass or hemorrhage is noted.
--- NOTE | 2018-01-11 10:22 | RAD ---
Indication: Left arm weakness, left facial droop. Single frontal view of the chest performed at 0950 hours was reviewed. Comparison is made with previous exam dated September 20, 2016. No mediastinal shift is noted. Heart is of normal size and configuration. Lung sandoval appear clear. IMPRESSION: NO ACTIVE CARDIOPULMONARY DISEASE IS NOTED.
[2018-01-11 11:24] LABS: Urine Appearance Cloudy; Urine Blood Negative (Negative); Urine Color Amber; Urine Ketones Negative (Negative); Urine Protein 2+(100 mg/dL) (Negative); Urine Specific Gravity 1.021 (1.010-1.030); Urine Urobilinogen Negative (Negative)
--- NOTE | 2018-01-11 12:32 | ED ---
Daryl Bonner Stephanie, scribed for Fred Marlow MD on 01/11/18 at 0934 . Upper Extremity Pain - HPI Summary HPI Summary: The pt is a 72 y/o M presenting to the ED with c/o L hand numbness that began at 04:30 today. The pt states he thought he was sleeping incorrectly on his arm and felt numbness in his L hand however, he is still having trouble moving his L hand despite being awake. He denies difficulty with ambulation, neck pain, facial numbness, speech changes, vision changes, MANRIQUEZ, CP and SOB. - History of Current Complaint Chief Complaint: EDExtremityUpper Stated Complaint: LT HAND NUMBNESS Time Seen by Provider: 01/11/18 09:11 Hx Obtained From: Patient Onset/Duration: Started Hours Ago - 5, Still Present Timing: Constant, Lasting Hours - 5 Severity Currently: Moderate Pain Location: Hand - L Aggravating Factor(s): Nothing Alleviating Factor(s): Nothing Associated Signs & Symptoms: Positive: Numbness/Tingling - L hand. Negative: Chest Pain, SOB, Neck Pain - Allergies/Home Medications Allergies/Adverse Reactions: Allergies Allergy/AdvReac Type Severity Reaction Status Date / Time ibuprofen Allergy Shortness Verified 01/11/18 08:40 of Breath Penicillins Allergy See Comment Verified 01/11/18 08:40 PMH/Surg Hx/FS Hx/Imm Hx Endocrine/Hematology History: Denies: Hx Anticoagulant Therapy, Hx Diabetes, Hx Systemic Lupus Erythematosus, Hx Sickle Cell Disease, Hx Thyroid Disease Cardiovascular History: Reports: Hx Hypercholesterolemia, Hx Hypertension Denies: Hx Congestive Heart Failure, Hx Deep Vein Thrombosis, Hx Myocardial Infarction, Hx Pacemaker/ICD, Other Cardiovascular Problems/Disorders Respiratory History: Denies: Hx Asthma, Hx Chronic Obstructive Pulmonary Disease (COPD), Hx Lung Cancer, Hx Pneumonia, Hx Pulmonary Embolism, Other Respiratory Problems/ Disorders GI History: Denies: Hx Gall Bladder Disease, Hx Gastrointestinal Bleed, Hx Ulcer, Hx Urosepsis, Other GI Disorders History: Reports: Hx Kidney Stones - MANY YEARS AGO, Hx Renal Disease - ACUTE RENAL FAILURE R/T DEHYDRATION 12/31/14, Other Problems/Disorders - urinary frequency Denies: Hx Dialysis Musculoskeletal History: Reports: Hx Arthritis, Hx Back Problems - chronic low back pain Denies: Hx Rheumatoid Arthritis, Other Musculoskeletal History Sensory History: Reports: Hx Contacts or Glasses, Hx Hearing Aid Opthamlomology History: Reports: Hx Contacts or Glasses Neurological History: Reports: Other Neuro Impairments/Disorders - optic nerve atrophy, PAIN CLINIC PATIENT Denies: Hx Dementia, Hx Migraine, Hx Seizures, Hx Transient Ischemic Attacks (TIA) Psychiatric History: Denies: Hx Anxiety, Hx Depression, Hx Panic Disorder, Hx Schizophrenia, Hx Bipolar Disorder - Cancer History Hx Chemotherapy: No - Surgical History Surgery Procedure, Year, and Place: NASAL SURGERY (STRAIGHTENED OUT) , right foot surgery Hx Anesthesia Reactions: No - Immunization History Date of Tetanus Vaccine: unknown, Pt of Dr Steele Date of Influenza Vaccine: Never Infectious Disease History: No Infectious Disease History: 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 usage Hx Tobacco Use: No Smoking Status (MU): Never Smoked Tobacco Have You Smoked in the Last Year: No Review of Systems Negative: Fever Negative: Blurred Vision Negative: Chest Pain Negative: Shortness Of Breath Musculoskeletal: Negative - neck pain Neurological: Negative - difficulty with ambulation, facial nnumbness Positive: Numbness - L hand. Negative: Headache, Slurred Speech All Other Systems Reviewed And Are Negative: Yes Physical Exam - Summary Physical Exam Summary: General: well-appearing, no pain distress Skin: warm, color reflects adequate perfusion, dry Head: normal Eyes: EOMI, ETHEL ENT: normal Neck: supple, nontender Respiratory: CTA, breath sounds present Cardiovascular: RRR Abdomen: soft, nontender Bowel: present Musculoskeletal: normal, strength/ROM intact Neurological: sensory intact, A&O x3, No wrist extension, wrist flexion is decreased. Finger flexion decreased. No sensation deficit. Psychological: affect/mood appropriate Triage Information Reviewed: Yes Vital Signs On Initial Exam: Initial Vitals Temp Pulse Resp BP Pulse Ox 97.4 F 73 16 164/94 100 01/11/18 08:41 01/11/18 08:41 01/11/18 08:41 01/11/18 08:41 01/11/18 08:41 Vital Signs Reviewed: Yes Diagnostics - Vital Signs Vital Signs Temp Pulse Resp BP Pulse Ox 01/11/18 09:00 73 19 98 01/11/18 08:53 75 21 168/108 100 01/11/18 08:52 74 15 100 01/11/18 08:41 97.4 F 73 16 164/94 100 - Laboratory Lab Results: Lab Results 01/11/18 01/11/18 01/11/18 Range/Units 09:37 09:37 09:37 WBC 6.4 (3.5-10.8) 10^3/ul RBC 3.36 L (4.0-5.4) 10^6/ul Hgb 10.8 L (14.0-18.0) g/dl Hct 32 L (42-52) % MCV 96 H (80-94) fL MCH 32 H (27-31) pg MCHC 33 (31-36) g/dl RDW 17 H (10.5-15) % Plt Count 198 (150-450) 10^3/ul MPV 8.2 (7.4-10.4) um3 Neut % (Auto) 69.9 (38-83) % Lymph % (Auto) 17.5 L (25-47) % Real % (Auto) 11.5 H (0-7) % Eos % (Auto) 0.2 (0-6) % Baso % (Auto) 0.9 (0-2) % Absolute Neuts (auto) 4.5 (1.5-7.7) 10^3/ul Absolute Lymphs (auto) 1.1 (1.0-4.8) 10^3/ul Absolute Monos (auto) 0.7 (0-0.8) 10^3/ul Absolute Eos (auto) 0 (0-0.6) 10^3/ul Absolute Basos (auto) 0.1 (0-0.2) 10^3/ul Absolute Nucleated RBC 0 10^3/ul Nucleated RBC % 0.6 INR (Anticoag Therapy) 0.95 (0.77-1.02) APTT 26.4 (26.0-36.3) seconds Sodium 138 L (139-145) mmol/L Potassium 4.1 (3.5-5.0) mmol/L Chloride 112 H (101-111) mmol/L Carbon Dioxide 24 (22-32) mmol/L Anion Gap 2 (2-11) mmol/L BUN 28 H (6-24) mg/dL Creatinine 1.74 H (0.67-1.17) mg/dL Est GFR ( Amer) 49.7 (>60) Est GFR (Non-Af Amer) 38.7 (>60) BUN/Creatinine Ratio 16.1 (8-20) Glucose 109 H (70-100) mg/dL Lactic Acid (0.5-2.0) mmol/L Calcium 9.1 (8.6-10.3) mg/dL Total Bilirubin 0.40 (0.2-1.0) mg/dL AST 15 (13-39) U/L ALT 11 (7-52) U/L Alkaline Phosphatase 90 (34-104) U/L Troponin I 0.00 (<0.04) ng/mL Total Protein 6.3 L (6.4-8.9) g/dL Albumin 3.6 (3.2-5.2) g/dL Globulin 2.7 (2-4) g/dL Albumin/Globulin Ratio 1.3 (1-3) Triglycerides 75 mg/dL Cholesterol 181 mg/dL LDL Cholesterol 90 mg/dL HDL Cholesterol 76.3 mg/dL Urine Color Urine Appearance Urine pH (5-9) Ur Specific [place] (1.010-1.030) Urine Protein (Negative) Urine Ketones (Negative) Urine Blood (Negative) Urine Nitrate (Negative) Urine Bilirubin (Negative) Urine Urobilinogen (Negative) Ur Leukocyte Esterase (Negative) Urine WBC (Auto) (Absent) Urine RBC (Auto) (Absent) Ur Squamous Epith Cells (Absent) Urine Bacteria (Absent) Hyaline Casts (Absent) Urine Glucose (Negative) Urine Ascorbic Acid (Negative) Blood Type Antibody Screen 01/11/18 01/11/18 01/11/18 Range/Units 09:37 09:37 11:04 WBC (3.5-10.8) 10^3/ul RBC (4.0-5.4) 10^6/ul Hgb (14.0-18.0) g/dl Hct (42-52) % MCV (80-94) fL MCH (27-31) pg MCHC (31-36) g/dl RDW (10.5-15) % Plt Count (150-450) 10^3/ul MPV (7.4-10.4) um3 Neut % (Auto) (38-83) % Lymph % (Auto) (25-47) % Real % (Auto) (0-7) % Eos % (Auto) (0-6) % Baso % (Auto) (0-2) % Absolute Neuts (auto) (1.5-7.7) 10^3/ul Absolute Lymphs (auto) (1.0-4.8) 10^3/ul Absolute Monos (auto) (0-0.8) 10^3/ul Absolute Eos (auto) (0-0.6) 10^3/ul Absolute Basos (auto) (0-0.2) 10^3/ul Absolute Nucleated RBC 10^3/ul Nucleated RBC % INR (Anticoag Therapy) (0.77-1.02) APTT (26.0-36.3) seconds Sodium (139-145) mmol/L Potassium (3.5-5.0) mmol/L Chloride (101-111) mmol/L Carbon Dioxide (22-32) mmol/L Anion Gap (2-11) mmol/L BUN (6-24) mg/dL Creatinine (0.67-1.17) mg/dL Est GFR ( Amer) (>60) Est GFR (Non-Af Amer) (>60) BUN/Creatinine Ratio (8-20) Glucose (70-100) mg/dL Lactic Acid 1.2 (0.5-2.0) mmol/L Calcium (8.6-10.3) mg/dL Total Bilirubin (0.2-1.0) mg/dL AST (13-39) U/L ALT (7-52) U/L Alkaline Phosphatase (34-104) U/L Troponin I (<0.04) ng/mL Total Protein (6.4-8.9) g/dL Albumin (3.2-5.2) g/dL Globulin (2-4) g/dL Albumin/Globulin Ratio (1-3) Triglycerides mg/dL Cholesterol mg/dL LDL Cholesterol mg/dL HDL Cholesterol mg/dL Urine Color Saray Urine Appearance Cloudy Urine pH 5.0 (5-9) Ur Specific [place] 1.021 (1.010-1.030) Urine Protein 2+(100 mg/dl) A (Negative) Urine Ketones Negative (Negative) Urine Blood Negative (Negative) Urine Nitrate Negative (Negative) Urine Bilirubin Negative (Negative) Urine Urobilinogen Negative (Negative) Ur Leukocyte Esterase Negative (Negative) Urine WBC (Auto) Trace(0-5/hpf) (Absent) Urine RBC (Auto) Trace(0-2/hpf) (Absent) Ur Squamous Epith Cells Present A (Absent) Urine Bacteria Absent (Absent) Hyaline Casts Present A (Absent) Urine Glucose Negative (Negative) Urine Ascorbic Acid * A (Negative) Blood Type O Positive Antibody Screen Negative Result Diagrams: 01/11/18 09:37 01/11/18 09:37 Lab Statement: Any lab studies that have been ordered have been reviewed, and results considered in the medical decision making process. - Radiology CXR Xray Interpretation: No Acute Changes Radiology Interpretation Completed By: Radiologist - NO ACTIVE CARDIOPULMONARY DISEASE IS NOTED. ED physician has reviewed this report. - CT Brain CT Interpretation: No Acute Changes CT Interpretation Completed By: Radiologist - No intracranial mass or hemorrhage is noted. ED physician reviewed this report. - EKG 09:55 Cardiac Rate: NL EKG Rhythm: Sinus Rhythm - [address] Segment: Normal Ectopy: None EKG Interpretation: prolonged NC interval (229) Re-Evaluation - Re-Evaluation First Eval Re-Evaluation Time: 10:08 Change: Unchanged - ED physician re-checked sensation exam. There is no sensation deficit. Course/Dx - Course Course Of Treatment: DR BLACKWOOD, NEUROLOGY, SAW THE PATIENT IN THE ED. WHEN COMPARED TO HIS DRIVERS LICENCE, THERE IS NO CHANGE IN MR TOBIAS'S SMILE. COCK UP SPLINT HERE. OUT PATIENT PHYSICAL THERAPY AND F/U WITH DR BLACKWOOD. RETURN IF WORSE. - Diagnoses Provider Diagnoses: Acute radial nerve palsy of left upper extremity - Physician Notifications Discussed Care of Patient With: Rachna Blackwood Time Discussed With Above Provider: 10:24 Instructed by Provider To: Will See In ED Discharge - Sign-Out/Discharge Documenting (check all that apply): Discharge/Admit/Transfer - Discharge Plan Condition: Stable Disposition: HOME Patient Education Materials: Radial Nerve Palsy (ED) Referrals: Jakub Steele MD [Primary Care Provider] - Rachna Blackwood MD [Medical Doctor] - Additional Instructions: FOLLOW UP WITH YOUR PRIMARY CARE DOCTOR, NEUROLOGY (DR BLACKWOOD), AND PHYSICAL THERAPY. CALL PHYSICAL THERAPY 01/13/18; , TO ARRANGE PHYSICAL THERAPY. IF THERE ARE ANY DIFFICULTIES ARRANGING PHYSICAL THERAPY, CALL NEUROLOGY, DR BLACKWOOD, AND ASK THEM TO ASSIST STARTING PHYSICAL THERAPY. RETURN TO THE EMERGENCY DEPARTMENT FOR ANY WORSENING OF YOUR CONDITION OR QUESTIONS OR CONCERNS. - Billing Disposition and Condition Condition: STABLE Disposition: HOME The documentation as recorded by the Daryl beach Stephanie accurately reflects the service I personally performed and the decisions made by me, Fred Marlow MD.
[2018-01-11] MEDS ORDERED: Carvedilol TAB* 25 MG PO ONE (12:38)
[2018-01-11 12:40] VITALS: BP 170/102
--- NOTE | 2018-01-11 14:40 | CONS ---
CC: Jaukb Steele MD CONSULTATION REPORT: DATE OF CONSULT: 01/11/18 ATTENDING PHYSICIAN REQUESTING CONSULT: Fred Marlow MD HISTORY OF PRESENT ILLNESS: Mr. Cesar Bajwa is a 72-year-old gentleman with a history of hypertension, who presents to the emergency room with left arm weakness. Mr. Bajwa indicates that he went to sleep at about 1 a.m. after watching TV and having a couple glasses of wine and woke up leaning to the left on his chair at 4 to 4:30 in the morning. At that time, his left hand was weak and he could not move it. He tried to shake it out, it did not get better. In analyzing his symptoms, he denies any clear numbness, it is more weakness. He at baseline states he has a crooked face. There has been no change in facial expression in his opinion when looking in the mirror. No change in speech. No change in vision. He has had no symptoms in his left leg. PAST MEDICAL HISTORY: Mr. Bajwa's past medical history includes: 1. Hypertension. 2. Chronic kidney disease, stage III. 3. Overactive bladder. 4. Admission in September 2016 for hypertensive urgency. As an outpatient, he follows with Dr. Steele. PAST SURGICAL HISTORY: Bunion repair on the right foot. MEDICATIONS: Include: 1. Amlodipine 5 mg p.o. daily. 2. Carvedilol 25 mg p.o. b.i.d. 3. Aspirin 81 mg p.o. daily. 4. Acetaminophen 650 mg p.o. q.6 hours p.r.n. ALLERGIES: He has allergies to IBUPROFEN, which causes shortness of breath and PENICILLIN, which caused him to almost pass out. SOCIAL HISTORY: Mr. Bajwa does not smoke. He denies any illicit drugs, other than occasionally smoking weed. He drinks approximately 2 glasses of wine a day. FAMILY HISTORY: Includes mother who at 84 of breast cancer, father who in his 70s of unknown illness, and 2 sisters who have , one who had a myocardial infarction in her mid 60s and the other had cancer, unknown type. REVIEW OF SYSTEMS: There has been no change in vision. He denies any change in speech. There has been no new numbness or weakness in arms or legs other than the weakness in the left arm. He denies any chest pain, chest pressure, palpitation, shortness of breath. There has been no change in bowel or bladder habits. No recent rash. He denies any drenching night sweats, high fevers for unknown reason, weight loss. He denies any psychiatric history. Renal history is a mentioned above. PHYSICAL EXAMINATION: On examination, Mr. Bajwa is a very pleasant gentleman who is awake, alert, showed appropriate concern. His blood pressure is 164/100, his pulse was regular at 78, his respiratory rate was 21, his saturation was 100%, and his temperature was 97.4 degrees Fahrenheit. He had a regular cardiac rhythm. His lungs were clear to auscultation. There was no carotid bruit. He was awake, alert, articulate. Had normal language function, adequate fund of knowledge. His pupils were equal and responsive to light. His fundi were flat. He had full extraocular movements with no nystagmus, and full sandoval to confrontation. His facial expression was asymmetric at baseline with more of an upward smile on the right and flat on the left, but when he activated his smile it was symmetric. 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 His facial sensation was symmetric. His palate was upgoing , tongue was midline. Sternocleidomastoid and trapezius were 5/5 in strength. There was normal bulk and normal tone with the exception of left upper extremity distally. There was no pronator drift. He gave good strength in the right upper extremity. In the left upper extremity, his deltoid and biceps were strong. His brachioradialis showed decreased bulk when trying to activate. He has good wrist flexion. His left wrist extension was completely weak at 0/5. His left hand finger extension was 0 to 5. His left hand ulnar intrinsics only worked when bracing his hand on the bed. His APB on the left was slightly weak at about 4+/5. His deep finger flexors, which were both ulnar and median innervated in both hands were symmetric and full strength. His lower extremities were strong. He had decreased distal vibration sensation , not felt to the toes, decreased at the ankles significantly (only minimally felt) and decreased at the knees by about 15 seconds. At the DIP of the 2nd finger of each hand, vibration was decreased by 5 to 10 seconds. He had decreased sharp sensation to approximately 2 inches below the knee bilaterally. There was no other asymmetry to pinprick, cold, or light touch, and no clear loss of sharp sensation in the radial distribution on the left. His reflexes were 2+ and symmetric with exception of the ankles that were 1+. His toes were flexor response. He had normal [id number] and ryva-ah-[id number] movements. His Romberg was minimally wobbly. He was able to get up on to his heels, hard to get on to his toes secondary to previous bunion with repair. He walked forward and backwards a few steps with no instability. There was no peripheral edema. Peripheral pulses were intact. Finger nail changes were noted in the right hand. LABORATORY DATA/DIAGNOSTIC STUDIES: Data includes CBC with normal white count, slight anemia with hemoglobin and hematocrit of 10.8 and 32, platelets were 198. His monocytes were slightly elevated at 11.5, lymphocytes down at 17.5. His complete metabolic panel showed a sodium that was low at 138, his chloride was high at 112, BUN and creatinine were 28 and 1.74. His liver function tests were normal with the exception of low protein at 6.3. His total cholesterol was 181, LDL was 90, HDL 76.3, and triglycerides 75. His urinalysis showed 2+ protein. His chest x-ray showed no evidence of active disease and a CT of the brain was read as negative; however, when I reviewed this, I questioned small vessel ischemic disease and hypodensities in the periventricular region that appeared to be old to the best of my review. This film was compared to CT of the brain performed in 2017, and appears to be similar. IMPRESSION: Mr. Cesar Bajwa is a 72-year-old gentleman with a history of hypertension now with left arm weakness after falling asleep in a chair consistent with a left radial nerve palsy (Saturday night palsy). Exam also shows evidence of a peripheral neuropathy with distal decrease in vibration sensation, decreased sharp sensation, and decreased reflexes, as well as slightly wobbly Romberg. Education was given regarding radial nerve palsy. He had some potential susceptibility for compression neuropathy secondary to what appears to be a peripheral neuropathy on physical examination. In addition, falling asleep in a chair puts one vulnerable to compression neuropathies, this occurred after having a couple glasses of wine, which may make it less likely for him to wake up and move when he develops difficulty with that limb. Education was given regarding how a nerve can regrow with remyelination as well as regrowth of the axon that can take weeks to months to years. At this point, it is hard to give prognosis. Education was given on why this was a peripheral nerve problem and not a central nervous system problem. He needs a wrist splint for wearing at night to keep his arm in good position. We talked about the importance of maintaining range of movement for when the nerve does regrow. He will be need to involved in physical therapy. I will plan to see him back in ~2 weeks' time, after which point we will plan to do further evaluation with the EMG nerve conduction studies as well as evaluation of peripheral neuropathy and etiologies of peripheral neuropathy and request records from primary care. Education was also given regarding alcohol intake. We discussed risk of alcohol for compression neuropathy, and for injury to brain and peripheral nerves. It was advised that he reduce his alcohol intake to maximum of one small glass a wine a day. TIME SPENT: Over an hour was spent in direct [id number] patient care, all the above was discussed, and questions were answered. A total of an hour and a half was spent in coordination of care with review of records, review of films, discussion with ER attending. [id number]/[facility] #: [id number] TAM
== END 2018-01-11 12:53 | disposition home or self-care (01) ==
LOC: ED 08:38
DX: G56.32 Lesion of radial nerve, left upper limb (principal); G62.9 Polyneuropathy, unspecified; I10 Essential (primary) hypertension; Z88.6 Allergy status to analgesic agent; Z88.0 Allergy status to penicillin
CPT/HCPCS: 36415; 70450; 71045; 80053; 80061; 81003; 81015; 83605; 84484; 85025; 85610; 85730; 86850; 86900; 86901; 87086; 93005; 96360; 99283; A9270-GY

== ENCOUNTER 2019-11-27 07:56 | Emergency (ER) | payer MEDICARE, OTHER ==
--- OUTSIDE RECORDS SUMMARY | 2019-11-27 08:13 | XMS REPORT | Continuity of Care Document ---
:1945 External Reference #:[id number] Author Name Jakub Olivera M.D. (transmitted by agent of provider Rachel Ty) Address [address] [place] [address] Care Team Providers Name Role Phone Jakub Steele M.D. 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 Onset: 05/26/2018 Presence of intraocular lens [place] O.D. Onset: 12/09/2015 Presbyopia [place] O.D. Onset: 12/09/2015 Regular astigmatism [place] O.D. Onset: 12/09/2015 Myopia [place] O.D. Onset: 12/09/2015 Optic atrophy [place] O.D. Onset: 12/09/2015 Epiretinal membrane [place] O.D. Onset: 12/09/2015 Social History Type Date Description Comments Sex Unknown ETOH Use Occasionally consumes alcohol Tobacco Use Start: Unknown Patient has never smoked Recreational Drug Use Denies Drug Use Smoking Status Reviewed: 11/03/19 Patient has never smoked Allergies, Adverse Reactions, Alerts Active Allergies Reaction Severity Comments Date Penicillin 11/14/2015 Ibuprofen 11/14/2015 Medications Active Medications SIG Qnty Indications Ordering Provider Date Amlodipine Besylate Unknown 10mg Tablets Carvedilol Unknown 25mg Tablets Multiple Vitamins Unknown Tablets Lisinopril Breiman, Jakub M.D. 40mg Tablets Immunizations Description No Information Available Vital Signs Date Vital Result Comment 11/09/2019 3:11pm BP Systolic 155 mmHg BP Diastolic 100 mmHg Heart Rate 66 /min Results Description No Information Available Procedures Date Code Description Status 11/09/2019 56155 Remove Secondary Cataract, Laser (Yag) Completed 11/03/2019 02207 Scanning Computerized Opthalmic Diagnostic Posterior Seg Completed Retina 11/03/2019 71620 Est Patient Comprehensive Exam Completed Medical Devices Description No Information Available Encounters Description No Information Available Assessments Date Code Description Provider 11/09/2019 H26.491 Other secondary cataract, right eye Jakub Olivera M.D. 11/09/2019 H35.372 Puckering of macula, left eye Jakub Olivera M.D. 11/03/2019 H35.372 Puckering of macula, left eye Jakub Olivera M.D. 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 11/03/2019 Z96.1 Presence of intraocular lens Jakub Olivera M.D. 11/03/2019 H04.123 Dry eye syndrome of bilateral lacrimal Jakub Olivera M.D. glands Plan of Treatment Future Appointment(s):01/04/2020 11:45 am - Jakub Olivera M.D. at Jakub Olivera MD, 01/04/2020 11:00 am - [facility] at Jakub Olivera MD, 2019 1:45 pm - Jakub Olivera M.D. at Jakub Olivera MD, 11/09/2019 - Jakub Olivera M.D.H26.491 Other secondary cataract, right eyeComments: Smoking can increase the risk of developing or worsening any eye related disease , as well as affect your overall health. If you are a smoker, we strongly recommend that you quit.If you are not a smoker, we strongly recommend that you do not start. Dr. Olivera performed a Yag Capsulotomy in the office for the clouding in the sac that holds your artificial lens on your right eye. The right eye was dilated, so your vision will be blurry for the remainder of the day. The dilation may last until tomorrow afternoon, which is also normal. You may see an increase in floaters for the next few days following your procedure, which should settle out of the way. If you have any questions or concerns regarding your procedure, please call our office at .[phone] Puckering of macula, left eye Functional Status Description No Information Available Mental Status Description No Information Available Referrals Description No Information Available
--- OUTSIDE RECORDS SUMMARY | 2019-11-27 08:13 | XMS REPORT | Continuity of Care Document ---
:1945 External Reference #:[id number] Author Name Jakub Olivera M.D. Address [address] [place] [address] Care Team Providers Name Role Phone Jakub Steele M.D. - Internal Care Team Information [employer]in [employer] Medicine Maximiliano Davidson O.D. - Orthopedic Technician Care Team Information [employer] Problems Active Problems Provider Date Essential hypertension [...] 25mg Tablets Multiple Vitamins Unknown Tablets Lisinopril Jakub Steele M.D. 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 11/03/2019 Z96.1 Presence of intraocular lens Jakub Olivera M.D. 11/03/2019 H04.123 Dry eye syndrome of bilateral lacrimal Jakub Olivera M.D. glands Plan of Treatment 11/03/2019 - Jakub Olivera M.D.H35.372 Puckering of macula, left eyeComments: Smoking can increase the risk of developing or worsening any eye related disease , as well as affect your overall health. If you are a smoker, we strongly recommend that you quit.If you are not a smoker, we strongly recommend that you do not start. A Macular Pucker is a wrinkling of the retina tissue. It can cause distortion in your vision. Please call the office if you notice a decrease or new distortion in your vision before then.Follow up:2 Month Follow Up IOP Check Visual Field, 30-2 At your next visit, we are not planning to dilate your eyes. However, if you have any changes in your vision or new symptoms, there are certain situations that require us to dilate your eyes. If Dr. Olivera requests any additional testing, that may require extra time. If you have any questions before your next appointment, please call our office at .H47.291 Other optic atrophy, right eyeComments:You have optic atrophy in your right eye. This means that the optic nerve is damaged and can cause vision difficulty.H26.493 Other secondary cataract, bilateralComments:There is clouding in the sac that holds your artificial lens in both eyes. We will schedule you an appointment for the YAG Capsulotomy laser with Dr. Olivera. Please read the pamphlet that has been printed out for you. We recommend you bring someone to drive you home.Follow up:Schedule YAG OUZ96.1 Presence of intraocular lensComments:The artificial lens implants in both eyes appear to be stable at this time.H04.123 Dry eye syndrome of bilateral lacrimal glands Functional Status Description No Information Available Mental Status Description No Information Available Referrals Description No Information Available
--- OUTSIDE RECORDS SUMMARY | 2019-11-27 08:13 | XMS REPORT | Continuity of Care Document ---
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 Onset: 05/12/2012 Backache Jakub Steele M.D. Onset: 05/12/2012 Arthralgia of the lower leg Jakub Steele M.D. Onset: 05/12/2012 Disorder of bone Jakub Steele M.D. Onset: 06/16/2012 Constipation Jakub Steele M.D. 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 Onset: 11/11/2012 Bunion Jakub Steele M.D. Onset: 06/01/2013 Weight decreased Jakub Steele M.D. Onset: 04/19/2014 Acute bronchitis Jakub Steele M.D. Onset: 01/05/2015 Benign essential hypertension Jakub Steele M.D. Onset: 01/05/2015 Impaired renal function disorder Jakub Steele M.D. Onset: 01/05/2015 Weakness of face muscles Jakub Steele M.D. Onset: 03/09/2015 Sensory function status: taste and smell Jakub Steele M.D. Onset: 04/01 Edema Jakub Steele M.D. Onset: 04/24/2016 Social History Type Date Description Comments Sex Unknown Tobacco Use Start: Unknown Nonsmoker Allergies, Adverse Reactions, Alerts Active Allergies Reaction Severity Comments Date Ibuprofen 08/09/2009 Penicillin 08/09/2009 Medications Active Medications SIG Qnty Indications Ordering Provider Date Lisinopril Take 1 Tablet 90tabs I10 Jakub Steele, 2018 40mg Tablets By Mouth Once M.D. Daily Amlodipine Besylate Take 1 Tablet 90tabs Jakub Steele, 10/05/2016 5mg By Mouth Once M.D. Tablets Daily Tylenol With Codeine use 1 every 4 90tabs Jakub Moran 04/23/2016 #3 hour as needed MD Amy 300-30mg Tablets pain Aspirin 1 po qd Family Medicine 08/09/[address] Donald [facility] [place] Multivitamins 1 po qd Unknown Tablets Carvedilol Take 1 Tablet 180tabs Leeanne Partida, 25mg Tablets By Mouth Twice [employer] Daily Immunizations Description No Information Available Vital Signs Date Vital Result Comment 10/22/2019 2:04pm BP Systolic 130 mmHg BP Diastolic 88 mmHg Heart Rate 68 /min Body Temperature 97.7 F Respiratory Rate 16 /min Height 71.75 inches 5'11.75" Weight 168.00 lb BMI (Body Mass Index) 22.9 kg/m2 05/11/2019 4:26pm BP Systolic 146 mmHg BP Diastolic 80 mmHg Heart Rate 84 /min Body Temperature 98.0 F Respiratory Rate 18 /min Weight 165.00 lb Results Description No Information Available Procedures Description No Information Available Medical Devices Description No Information Available Encounters Type Date Location Provider Dx Diagnosis Office Visit 05/11/2019 [facility] Office Jakub Moran R60.0 Localized edema 4:10p MD Amy K21.9 Gastro-esophageal reflux disease without esophagitis Assessments Date Code Description Provider 10/22/2019 R07.89 Other chest pain Jakub Reyes MD 10/22/2019 R35.0 Frequency of micturition Jakub Reyes MD 05/11/2019 R60.0 Localized edema Jakub Reyes MD 05/11/2019 K21.9 Gastro-esophageal reflux disease without Jakub Reyes MD esophagitis Plan of Treatment 10/22/2019 - Jakub Reyes, MDR07.89 Other chest painR35.0 Frequency of micturitionAllComments:Medication Management Patient Understands medications he' s taking? Yes No Are there Barriersto Adherence? Yes No Has the patient been asked about herbal supplements and therapies, and OTC meds? Yes No Functional Status Description No Information Available Mental Status Description No Information Available Referrals Description No Information Available
[2019-11-27] MEDS ORDERED: NS 0.9% 1000 ML** 1,000 ML IV ONE (08:28)
--- NOTE | 2019-11-27 08:28 | ED ---
Abdominal Pain/Male - HPI Summary HPI Summary: Pt. is a 74 y.o male who presents to the ER for lower abd. pain and one episode of vomiting that started last night. Pt. notes pain has subsided and is minimal at this time. Pt. denies fever, chills, CP, SOB. He notes he has been urinating more and has been constipation. Past hx of HTN. Denies abd. surgeries. Sxs are moderate in severity. No current modifying factors. - History of Current Complaint Chief Complaint: EDAbdPain Stated Complaint: ABDOMINIAL PAIN Time Seen by Provider: 11/27/19 08:16 Hx Obtained From: Patient Pain Intensity: 7 - Allergies/Home Medications Allergies/Adverse Reactions: Allergies Allergy/AdvReac Type Severity Reaction Status Date / Time ibuprofen Allergy Shortness Verified 11/27/19 08:01 of Breath Penicillins Allergy See Comment Verified 11/27/19 08:01 Home Medications: Home Medications Aspirin 81 mg CHEW TAB* 81 mg PO DAILY 06/17/12 [History Confirmed 11/27/19] Carvedilol TAB* [Coreg TAB*] 25 mg PO BID 06/17/12 [History Confirmed 11/27/19] amLODIPine TAB* [Norvasc 5 mg TAB*] 5 mg PO DAILY #30 tab 09/21/16 [Rx Confirmed 11/27/19] Lisinopril TAB* [Prinivil TAB*] 40 mg PO DAILY 11/27/19 [History Confirmed 11/26] Multivitamins/Minerals TAB* [Theragran/minerals TAB*] 1 tab PO DAILY 11/27/19 [ History Confirmed 11/27/19] Tylenol With Codeine 300-30 1 tab PO Q4H PRN 11/27/19 [History Confirmed ] PMH/Surg Hx/FS Hx/Imm Hx Previously Healthy: Yes Endocrine/Hematology History: Denies: Hx Anticoagulant Therapy, Hx Diabetes, Hx Systemic Lupus Erythematosus, Hx Sickle Cell Disease, Hx Thyroid Disease Cardiovascular History: Reports: Hx Hypercholesterolemia, Hx Hypertension Denies: Hx Congestive Heart Failure, Hx Deep Vein Thrombosis, Hx Myocardial Infarction, Hx Pacemaker/ICD, Other Cardiovascular Problems/Disorders Respiratory History: Denies: Hx Asthma, Hx Chronic Obstructive Pulmonary Disease (COPD), Hx Lung Cancer, Hx Pneumonia, Hx Pulmonary Embolism, Other Respiratory Problems/ Disorders GI History: Denies: Hx Gall Bladder Disease, Hx Gastrointestinal Bleed, Hx Ulcer, Hx Urosepsis, Other GI Disorders History: Reports: Hx Kidney Stones - MANY YEARS AGO, Hx Renal Disease - ACUTE RENAL FAILURE R/T DEHYDRATION 12/31/14, Other Problems/Disorders - urinary frequency Denies: Hx Dialysis Musculoskeletal History: Reports: Hx Arthritis, Hx Back Problems - chronic low back pain Denies: Hx Rheumatoid Arthritis, Other Musculoskeletal History Sensory History: Reports: Hx Contacts or Glasses, Hx Hearing Aid Opthamlomology History: Reports: Hx Contacts or Glasses Neurological History: Reports: Other Neuro Impairments/Disorders - optic nerve atrophy, PAIN CLINIC PATIENT Denies: Hx Dementia, Hx Migraine, Hx Seizures, Hx Transient Ischemic Attacks (TIA) Psychiatric History: Denies: Hx Anxiety, Hx Depression, Hx Panic Disorder, Hx Schizophrenia, Hx Bipolar Disorder - Cancer History Hx Chemotherapy: No - Surgical History Surgery Procedure, Year, and Place: NASAL SURGERY (STRAIGHTENED OUT) , right foot surgery Hx Anesthesia Reactions: No - Immunization History Date of Tetanus Vaccine: unknown, Pt of Dr Steele Date of Influenza Vaccine: Never Infectious Disease History: No Infectious Disease History: Reports: 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 usage Hx Tobacco Use: No Smoking Status (MU): Never Smoked Tobacco Have You Smoked in the Last Year: No Review of Systems Constitutional: Negative Negative: Fever, Chills Cardiovascular: Negative Negative: Chest Pain Respiratory: Negative Negative: Shortness Of Breath Positive: Abdominal Pain, Vomiting, Nausea, Other - constipation Positive: frequency. Negative: dysuria, hematuria Neurological/Mental Status: Negative All Other Systems Reviewed And Are Negative: Yes Physical Exam Triage Information Reviewed: Yes Vital Signs On Initial Exam: Initial Vitals Temp Pulse Resp BP Pulse Ox 97.6 F 58 16 183/102 100 11/27/19 07:57 11/27/19 07:57 11/27/19 07:57 11/27/19 07:57 11/27/19 07:57 Vital Signs Reviewed: Yes Appearance: Positive: Well-Appearing - Pt. lying in bed in NAD. Answers questions appropriately. Skin: Positive: Warm, Dry Head/Face: Positive: Normal Head/Face Inspection Eyes: Positive: Normal, EOMI Neck: Positive: Supple Respiratory/Lung Sounds: Positive: Clear to Auscultation, Breath Sounds Present Cardiovascular: Positive: Normal, RRR Abdomen Description: Positive: Other: - Abd. is soft with mild suprapubic pain on palpation. No rebound or guarding. Hypoactive BS. Neurological: Positive: Normal, CN Intact II-III Psychiatric: Positive: Affect/Mood Appropriate Procedures - Sedation Patient Received Moderate/Deep Sedation with Procedure: No Diagnostics - Vital Signs Vital Signs Temp Pulse Resp BP Pulse Ox 11/27/19 07:57 97.6 F 58 16 183/102 100 - Laboratory Result Diagrams: 11/27/19 08:39 11/27/19 08:39 Lab Statement: Any lab studies that have been ordered have been reviewed, and results considered in the medical decision making process. Abdominal Pain Male Course/Dx - Course Course Of Treatment: Patient presenting with lower abdominal pain and one episode of vomiting. Pain has subsided since being in the ER. He is afebrile. Elevated blood pressure. Patient started on IV fluids. Labs show chronic anemia, creatinine 1.53. ECG done at 0855 shows a sinus bradycardia of 58bpm, normal axis, prolonged OK interval, no STEMI. CT per radiology: IMPRESSION: 1. THERE IS DISTENTION OF THE SMALL BOWEL, WITHOUT DILATATION, WITH A TRANSITION POINT IN. THE LEFT HEMIABDOMEN. THE DIFFERENTIAL INCLUDES PARTIAL/ INTERMITTENT OR EARLY SMALL BOWEL. OBSTRUCTION. RECOMMEND ATTENTION ON FOLLOW- UP IMAGING. 2. THERE IS AN EXOPHYTIC HIGH ATTENUATION LESION OF THE LOWER POLE LEFT KIDNEY. THE. DIFFERENTIAL INCLUDES HIGH ATTENUATION CYST VERSUS SOLID RENAL PARENCHYMAL NEOPLASM. RECOMMEND CONSIDERATION OF FURTHER EVALUATION WITH MULTIPHASE CONTRAST ENHANCED RENAL. PROTOCOL CT, CONTRAST- ENHANCED MRI OF THE ABDOMEN, OR ULTRASOUND OF THE KIDNEYS.. 3. STABLE PANCREATIC DUCTAL DILATATION. 4. LARGE AMOUNT OF STOOL WITHIN THE COLON. 5. DIVERTICULOSIS. 6. ATHEROSCLEROSIS. 1020: Case discussed with oncall surgery , Dr. Lee. Splint reviewed CT she is not concerning for obstruction at this time based on CT scan of patient's improving discomfort. She recommends trying by mouth challenge and supository for constipation and reassess. Pt. had BM after supositiory and is tolerating PO fluids and has had no N/V in ED. Discussed ct findings with pt. Discussed renal mass and need for further testing per PCP. Advised clear liquid diet x 48 hours. To f.u with pcp in 2-3 days. To return to ER for increased pain, vomiting, fever, or if concerned. Pt. understands and agrees with plan. - Diagnoses Differential Diagnosis/HQI/PQRI: Appendicitis, Bowel Obstruction, Constipation, Diverticulitis Provider Diagnoses: Kidney mass, Constipation, Abdominal pain Discharge ED - Sign-Out/Discharge Documenting (check all that apply): Patient Departure - Discharge Plan Condition: Improved Disposition: HOME Patient Education Materials: Constipation (ED), Abdominal Pain (ED) Referrals: Jakub Steele MD [Primary Care Provider] - Additional Instructions: Please see you PCP within 2-[address] scan showed a mass on your left kidney and your PCP will need to perform additional test Clear liquid diet x 48 hours Increase fluids and fiber in diet Can take over the counter stool softener/laxatives Return to ER for increased abdominal pain, vomiting, fever, or if concerned - Billing Disposition and Condition Condition: IMPROVED Disposition: Home - Attestation Statements Provider Attestation: I was available for consult. This patient was seen by the [facility]. The patient was not presented to, seen by, or examined by me. Godwin Willingham MD
[2019-11-27 08:58] LABS: ABS Basophils 0.1 10^3/ul (0-0.2); ABS Lymphocytes 0.5 10^3/ul (1.0-4.8); ABS Monocytes 0.5 10^3/ul (0-0.8); ABS Neutrophils 8.2 10^3/ul (1.5-7.7); Hematocrit 34 % (42-52); Hemoglobin 11.2 g/dL (14.0-18.0); Lymphocyte % 5.2 %; Mean Corpuscular HGB Conc 33 g/dL (31-36); Mean Corpuscular Hemoglobin 33 pg (27-31); Mean Corpuscular Volume 99 fL (80-94); Mean Platelet Volume 8.4 fL (7.4-10.4); Nucleated Red Blood Cells % 0.2; Platelet Count 174 10^3/uL (150-450); Red Blood Count 3.44 10^6 /uL (4.18-5.48); Red Cell Distribution Width 16 % (10-15); White Blood Count 9.3 10^3/uL (3.5-10.8)
[2019-11-27 09:22] LABS: Troponin I 0.01 ng/mL (<0.03)
[2019-11-27 09:28] LABS: ALT 15 U/L (7-52); AST 19 U/L (13-39); Albumin 3.9 g/dL (3.2-5.2); Albumin/Globulin Ratio 1.3 (1-3); Alkaline Phosphatase 100 U/L (34-104); Anion Gap 5 mmol/L (2-11); BUN/Creatinine Ratio 15.7 (8-20); Blood Urea Nitrogen 24 mg/dL (6-24); C Reactive Protein < 1.00 mg/L (<8.01); CO2 Carbon Dioxide 24 mmol/L (22-32); Calcium 9.2 mg/dL (8.6-10.3); Chloride 109 mmol/L (101-111); EGFR Non-African American 44.6 (>60); Globulin 2.9 g/dL (2-4); Glucose 146 mg/dL (70-100); Potassium 4.2 mmol/L (3.5-5.0); Sodium 138 mmol/L (135-145); Total Protein 6.8 g/dL (6.4-8.9)
[2019-11-27] MEDS ORDERED: Glycerin ADULT SUPP PR ONE (10:22)
[2019-11-27 10:58] LABS: Urine Appearance Clear; Urine Bilirubin Negative (Negative); Urine Blood Negative (Negative); Urine Color Yellow; Urine Glucose Negative (Negative); Urine Ketones Negative (Negative); Urine Nitrite Negative (Negative); Urine Protein 1+(30 mg/dL) (Negative); Urine Specific Gravity 1.008 (1.010-1.030); Urine Urobilinogen Negative (Negative)
[2019-11-27 11:02] LABS: Urine Bacteria Absent (Absent); Urine Red Blood Cell Trace(0-2/hpf) (Absent); Urine White Blood Cell Absent (Absent)
[2019-11-27 13:18] VITALS: BP 160/96
== END 2019-11-27 13:11 | disposition home or self-care (01) ==
LOC: ED 07:56
DX: N28.89 Other specified disorders of kidney and ureter (principal); K59.00 Constipation, unspecified; R10.30 Lower abdominal pain, unspecified; E78.00 Pure hypercholesterolemia, unspecified; I10 Essential (primary) hypertension; Z87.442 Personal history of urinary calculi; R11.2 Nausea with vomiting, unspecified
CPT/HCPCS: 36415; 74176; 80053; 81003; 81015; 83605; 83690; 84484; 85025; 86140; 93005; 96360; 96361; 99283; A9270-GY

== ENCOUNTER 2021-01-31 06:45 | Observation (INO) ==
[2021-01-31] MEDS ORDERED: oxyCODONE/Acetamin 5/325 mg TAB PO ONE (08:51)
[2021-01-31] MEDS ORDERED: Ondansetron 4 mg VIAL 2 MG/ML 2 ml VIAL IV PRN (10:04)
[2021-01-31] MEDS ORDERED: Al Hydrox/Mg Hydrox/Simet LIQ 30 ML UDC PO PRN (10:04)
[2021-01-31 10:05] LABS: ABS Basophils 0.1 10^3/ul (0-0.2); ABS Eosinophils 0.1 10^3/ul (0-0.6); ABS Lymphocytes 0.9 10^3/ul (1.0-4.8); ABS Monocytes 0.5 10^3/ul (0-0.8); ABS Neutrophils 4.5 10^3/ul (1.5-7.7); Eosinophil % 1.1 %; Hematocrit 32 % (42-52); Hemoglobin 10.4 g/dL (14.0-18.0); Lymphocyte % 14.3 %; Mean Corpuscular HGB Conc 33 g/dL (31-36); Mean Corpuscular Hemoglobin 33 pg (27-31); Mean Corpuscular Volume 99 fL (80-94); Mean Platelet Volume 8.8 fL (7.4-10.4); Nucleated Red Blood Cells % 0.1; Platelet Count 164 10^3/uL (150-450); Red Blood Count 3.19 10^6 /uL (4.18-5.48); Red Cell Distribution Width 17 % (10-15)
[2021-01-31 10:21] LABS: Albumin 3.7 g/dL (3.2-5.2); Albumin/Globulin Ratio 1.4 (1-3); Calcium 9.3 mg/dL (8.6-10.3); EGFR African American 43.5 (>60); EGFR Non-African American 35.9 (>60); Globulin 2.6 g/dL (2-4); Potassium 4.7 mmol/L (3.5-5.0); Total Bilirubin 0.5 mg/dL (0.2-1.0); Total Protein 6.3 g/dL (6.4-8.9)
[2021-01-31] MEDS: Enoxaparin 40 MG/0.4 ML SYR SUBCUT SCH (11:29)
[2021-02-01 09:14] LABS: ABS Basophils 0.1 10^3/ul (0-0.2); ABS Eosinophils 0.1 10^3/ul (0-0.6); ABS Monocytes 0.6 10^3/ul (0-0.8); ABS Neutrophils 2.9 10^3/ul (1.5-7.7); Eosinophil % 1.6 %; Hematocrit 33 % (42-52); Hemoglobin 10.8 g/dL (14.0-18.0); Lymphocyte % 21.4 %; Mean Corpuscular HGB Conc 33 g/dL (31-36); Mean Corpuscular Hemoglobin 32 pg (27-31); Mean Corpuscular Volume 99 fL (80-94); Mean Platelet Volume 8.5 fL (7.4-10.4); Nucleated Red Blood Cells % 0.3; Platelet Count 170 10^3/uL (150-450); Red Blood Count 3.35 10^6 /uL (4.18-5.48); Red Cell Distribution Width 17 % (10-15); White Blood Count 4.6 10^3/uL (3.5-10.8)
[2021-02-01 09:38] LABS: Calcium 9.3 mg/dL (8.6-10.3); EGFR African American 57.3 (>60); EGFR Non-African American 47.3 (>60); Potassium 4.2 mmol/L (3.5-5.0)
[2021-02-01] MEDS: Enoxaparin 40 MG/0.4 ML SYR SUBCUT SCH (10:11)
[2021-02-01] MEDS: Senna TAB 8.6 mg TAB PO PRN (16:15)
[2021-02-02] MEDS: Senna TAB 8.6 mg TAB PO PRN (07:44)
[2021-02-02] MEDS: Magnesium Hydroxide LIQ 30 ML UDC PO PRN ×2 (07:44→13:03)
[2021-02-02] MEDS: Enoxaparin 40 MG/0.4 ML SYR SUBCUT SCH (10:47)
[2021-02-03 06:10] LABS: ABS Basophils 0.1 10^3/ul (0-0.2); ABS Lymphocytes 1.2 10^3/ul (1.0-4.8); ABS Monocytes 0.5 10^3/ul (0-0.8); ABS Neutrophils 2.5 10^3/ul (1.5-7.7); Eosinophil % 0.9 %; Hematocrit 30 % (42-52); Hemoglobin 9.9 g/dL (14.0-18.0); Lymphocyte % 27.2 %; Mean Corpuscular HGB Conc 33 g/dL (31-36); Mean Corpuscular Hemoglobin 33 pg (27-31); Mean Corpuscular Volume 99 fL (80-94); Mean Platelet Volume 8.5 fL (7.4-10.4); Nucleated Red Blood Cells % 0.2; Platelet Count 152 10^3/uL (150-450); Red Blood Count 3.05 10^6 /uL (4.18-5.48); Red Cell Distribution Width 17 % (10-15); White Blood Count 4.3 10^3/uL (3.5-10.8)
[2021-02-03 06:24] LABS: Calcium 9.1 mg/dL (8.6-10.3); EGFR Non-African American 40.5 (>60); Magnesium 2.5 mg/dL (1.9-2.7); Potassium 4.9 mmol/L (3.5-5.0)
[2021-02-03] MEDS: Senna TAB 8.6 mg TAB PO PRN (08:24)
[2021-02-03] MEDS: Enoxaparin 40 MG/0.4 ML SYR SUBCUT SCH (11:59)
[2021-02-04] MEDS: Enoxaparin 40 MG/0.4 ML SYR SUBCUT SCH (11:41)
[2021-02-04 15:40] VITALS: BP 154/97
== END 2021-02-04 15:12 | disposition swing bed (61) ==
LOC: ED 06:45 → SSU 06:45
PROVIDERS: ADMIT Hospitalist; ATTEND Hospitalist

== ENCOUNTER 2021-02-04 13:15 | Inpatient (IN) ==
[2021-02-04] MEDS ORDERED: Senna TAB 8.6 mg TAB PO PRN (18:23)
[2021-02-04] MEDS ORDERED: Al Hydrox/Mg Hydrox/Simet LIQ 30 ML UDC PO PRN (18:23)
[2021-02-04] MEDS ORDERED: Magnesium Hydroxide LIQ 30 ML UDC PO PRN (18:23)
[2021-02-05] MEDS: Vitamin THERAPEUTIC TAB PO SCH (09:14)
[2021-02-05] MEDS: Enoxaparin 40 MG/0.4 ML SYR SUBCUT SCH (13:49)
[2021-02-06 09:02] LABS: Rapid COVID-19 Molecular Undetected (Undetected)
[2021-02-06 11:18] VITALS: BP 114/61
== END 2021-02-06 13:45 ==
LOC: SSU 13:15
PROVIDERS: ADMIT Hospitalist; ATTEND Internal Medicine